=== PATIENT | female | born 1975 | race Caucasian/White ===

== ENCOUNTER → 2016-05-22 | Outpatient (CLI) | payer MEDICARE, OTHER ==
[~2016-05-22] MED LIST: ALAVERT10 MG PO; ALBUTEROL17 GM INH; ALLEGRA; MOTRIN400 MG PO; VICODIN PO; ZOLOFT100 MG PO; [UNRECOGNIZED DRUG - OTHER]
--- NOTE | ~2016-05-22 | CR63 ---
[facility] A Service of [facility] & [facility] RADIOLOGY TEXT RESULTS PATIENT: NIA HUFF LOCATION: [facility] : 71 UNIT #: [id number] AGE: [address]: Sofia Jeffries SEX: F ORDER DR: [id number] [facility] [address] [facility] [place], [place] [address] [id number] O MR#: [id number] Acc #: [id number] NAME: NIA HUFF : 1975 SEX: F STUDY DATE/TIME: 05/22/2016 9:52 UNIT: [facility] ROOM: STUDY DESCRIPTION: CR Chest 2 View Attending Physician: Sofia Jeffries A.P.R.N. Referring Physician: Sofia Jeffries A.P.R.N. Ordering Physician: Sofia Jeffries A.P.R.N. Primary Care Physician: Primary Care Physician No MEDICAL IMAGING REPORT This report is preliminary unless electronic signature is present EXAM PA and lateral chest. HISTORY SUPPLIED Cough beginning 3 years ago. FINDINGS PA and lateral views are obtained at low volumes. Cardiac size in the patient is stable. Vascular pattern is normal and the lungs are clear. CONCLUSION Low lung volume chest with no active disease. Dictated by... Mika Krishna M.D. THIS IS AN ELECTRONICALLY VERIFIED REPORT Mika Krishna M.D. at 05/25/2016 7:20 AM ANA/bhaskar TD: 05/22/2016 20:34 JOB #: [id number] MEDICAL IMAGING REPORT Page 1 of 1 COPY
== END | disposition home or self-care (01) ==
LOC: CRAD 09:31
DX: R05 Cough (principal)
CPT/HCPCS: 71020

== ENCOUNTER → 2016-07-02 | Outpatient (CLI) | payer MEDICARE, OTHER ==
--- NOTE | ~2016-07-02 | CT113 ---
[facility] A Service [facility] RADIOLOGY TEXT RESULTS PATIENT: NIA HUFF LOCATION: [facility] : 71 UNIT #: [id number] AGE: [address]: Portia Hampton APRN SEX: F ORDER DR: [id number] [address] [address] [id number] O MR#: [id number] Acc #: [id number] NAME: NIA HUFF : 1975 SEX: F STUDY DATE/TIME: 07/02/2016 13:41 UNIT: [facility] ROOM: STUDY DESCRIPTION: CT Sinuses Wo Contrast Attending Physician: Portia Hampton A.P.R.N. Ordering Physician: Portia Hampton A.P.R.N. Primary Care Physician: Bigg Lane M.D. MEDICAL IMAGING REPORT This report is preliminary unless electronic signature is present EXAM Sinus CT, no contrast. CLINICAL HISTORY 3-year history of cough and sinus drainage worsened in the last [address] exam was performed with one or more of the following radiation dose reduction techniques: automatic exposure control, adjustment of mA and/or kV according to patient size, and iterative reconstruction. FINDINGS Tremendously motion degraded nondiagnostic sinus CT. No obvious mucosal disease is demonstrated but the degree of motion is such that no reasonable judgement can be made. IMPRESSION Nondiagnostic exam. Dictated by... Ricardo Aguilera M.D. THIS IS AN ELECTRONICALLY VERIFIED REPORT Ricardo Aguilera M.D. at 07/07/2016 12:16 PM TEV/kerriw TD: 07/02/2016 17:15 JOB #: [id number] MEDICAL IMAGING REPORT [facility] A Service [facility] RADIOLOGY TEXT RESULTS PATIENT: NIA HUFF LOCATION: [facility] : 71 UNIT #: [id number] AGE: [address]: Portia Hampton APRN SEX: F ORDER DR: Page 1 of 1 COPY
--- NOTE | ~2016-07-02 | CT57 ---
[facility] A Service [facility] RADIOLOGY TEXT RESULTS PATIENT: NIA HUFF LOCATION: [facility] : 71 UNIT #: [id number] AGE: [address]: Portia Hampton APRN SEX: F ORDER DR: [id number] [id number] [facility]. [place], [place] [address] [id number] O MR#: [id number] Acc #: [id number] NAME: NIA HUFF : 1975 SEX: F STUDY DATE/TIME: 07/02/2016 13:43 UNIT: [facility] ROOM: STUDY DESCRIPTION: CT Chest Wo Cont Attending Physician: Portia Hampton A.P.R.N. Ordering Physician: Portia Hampton A.P.R.N. Primary Care Physician: Bigg Lane M.D. MEDICAL IMAGING REPORT This report is preliminary unless electronic signature is present EXAM CT of the chest without contrast. INDICATION Cough, sinus drainage for [address] of the chest was performed without contrast. Coronal and sagittal reformatted images were obtained. This CT exam was performed with one or more of the following radiation dose reduction techniques: automatic exposure control, adjustment of mA and/or kV according to patient size, and iterative reconstruction. COMPARISON No comparisons. FINDINGS The study is somewhat limited by motion artifact. There is however no evidence for airspace consolidation or suspicious pulmonary nodule. There is no lymphadenopathy or pleural effusion. Limited imaging of the upper abdomen demonstrates a tiny cyst in the liver. Bone windows are unremarkable. IMPRESSION Study is somewhat limited due to motion artifact. However the study appears to be normal. Dictated by... Matt Valdes M.D. THIS IS AN ELECTRONICALLY VERIFIED REPORT [facility] A Service [facility] RADIOLOGY TEXT RESULTS PATIENT: NIA HUFF LOCATION: [facility] : 71 UNIT #: [id number] AGE: [address]: Portia Hampton APRN SEX: F ORDER DR: Matt Valdes M.D. at 07/03/2016 9:05 AM RALEIGH/meena TD: 07/02/2016 15:57 JOB #: [id number] MEDICAL IMAGING REPORT Page 1 of 1 COPY
== END | disposition home or self-care (01) ==
LOC: CCAT 12:44
DX: R05 Cough (principal)
CPT/HCPCS: 70486; 71250